=== PATIENT | female | born 1995 | race African-American/Black ===

== ENCOUNTER 2017-09-30 12:07 | Emergency (ER) | payer SELFPAY, OTHER ==
[2017-09-30] MEDS: ACETAMINOPHEN TAB 650MG DOSE (2X325MG) PO (12:56)
== END 2017-09-30 14:39 | disposition home or self-care (01) ==
LOC: M ED 12:07
DX: S09.90XA Unspecified injury of head, initial encounter (principal); S10.93XA Contusion of unspecified part of neck, initial encounter; R55 Syncope and collapse; Y04.8XXA Assault by other bodily force, initial encounter; Y92.099 Unspecified place in other non-institutional residence as the place of occurrence of the external cause; Y93.9 Activity, unspecified; Y99.9 Unspecified external cause status; J45.909 Unspecified asthma, uncomplicated
CPT/HCPCS: 70450